=== PATIENT | male | born 1975 | race Caucasian/White ===

== ENCOUNTER 2025-04-01 17:11 | Emergency (ER) | payer MEDICAID, SELFPAY ==
[2025-04-01 17:27] VITALS: BP 172/96; PULSE 95; RESP 20; TEMP 36.4; O2SAT 98
--- NOTE | 2025-04-01 17:35 | PD.EDRME ---
Rapid Medical Screening Exam RME Arrival date/time: 04/01/25 17:11 Chief Complaint: Back Pain/Injury Vital signs: Vital Signs Temperature 97.5 F 04/01/25 17:27 Pulse Rate 95 04/01/25 17:27 Respiratory Rate 20 04/01/25 17:27 Blood Pressure 172/96 H 04/01/25 17:27 Pulse Oximetry (%) 98 04/01/25 17:27 Oxygen Delivery Method Room Air 04/01/25 17:27 Pulse ox 98% room air Vital signs reviewed by provider: No RME Narrative: Patient tells me that at 1500 this afternoon he developed intense pain to the area of the right lower quadrant and radiates down to the scrotal sac.
--- NOTE | 2025-04-01 17:36 | XR_ITS ---
Examination: Testicular 3d alexia incomplete TECHNIQUE: Easley scale sonographic images testes, assessment or treatment for venous outflow, Doppler spectral analysis color flow analysis INDICATIONS: Right groin and back pain beginning 3 hours ago FINDINGS: Right testicle is 4.4 cm epididymis 1.4 cm 5 mm appendix testis Arterial focus: No testicular mass Left testis 3.1 cm epididymis 0.9 cm Arterial flow to the testicle. No testicular mass IMPRESSION: Negative study
--- NOTE | 2025-04-01 17:42 | XR_ITS ---
Examination: CT abdomen and pelvis without contrast. Coronal 3-D reconstructions. Sagittal 2-D reconstructions. Date and time of exam:April 01, 2025 1840 hours INDICATIONS: Right lower abdominal pain radiating to the flank and back beginning one month ago CTDI: vol (mGy): 10.3 DLP: (mGycm): 682 Technique: Axial images of the abdomen have been obtained, 3 mm slice thickness Intravenous contrast material has not been administered. Low dose protocols were performed. One or more of the following dose reduction techniques were used; automated exposure control, adjustment of the mA and/or KV according to patient size, use of iterative reconstruction technique. Findings: No focal liver or splenic lesions No gallstones No pancreatic or adrenal mass. No renal or ureteral calculi, no hydronephrosis Aorta normal size Normal appendix No bowel obstruction Mild diffuse wall thickening involving the colon Normal seminal vesicles Transverse prostate dimension 3.9 cm Bladder is contracted with mild wall thickening Tiny fat containing inguinal hernias L4-L5 3 mm central lumbar disc bulge L5-S1 3 mm and lumbar disc bulge IMPRESSION: No renal or ureteral calculi, no hydronephrosis Normal appendix Mild thickening of the urinary bladder wall, consider cystitis Mild nonspecific colitis pattern
[2025-04-01 18:14] LABS: Basophils # (Auto) 0.1 Thou/mm3 (0.0-0.2); Basophils % (Auto) 0 % (0-2.5); Eosinophils # (Auto) 0.1 Thou/mm3 (0.0-0.5); Eosinophils % (Auto) 1 % (0-10); Hematocrit 46.4 % (41.0-53.0); Immature Granulocytes % (Auto) 0 % (0-0); Immature Granulocytes Auto 0.04 Thou/mm3 (0.00-0.00); Lymphocytes # (Auto) 1.8 Thou/mm3 (1.0-4.8); Lymphocytes % (Auto) 16 % (10-50); Mean Corpuscular HGB Conc 34.5 g/dl (31.0-37.0); Mean Corpuscular Hemoglobin 30.6 pg (25.0-35.0); Mean Corpuscular Volume 89 fL (80-100); Monocytes # (Auto) 0.8 Thou/mm3 (0.0-0.8); Monocytes % (Auto) 7 % (0-12); Neutrophils # (Auto) 8.6 Thou/mm3 (1.8-7.7); Neutrophils % (Auto) 76 % (37-80); Nucleated Red Blood Cell % 0 /100 WBC (0); Platelet Count 224 Thou/mm3 (140-440); RDW Standard Deviation 42.1 fL (35.1-43.9); Red Blood Count 5.23 Miln/mm3 (4.50-5.90); White Blood Count 11.3 Thou/mm3 (3.8-10.6)
[2025-04-01] MEDS: HYDROcodone/APAP 10/325 TAB PO ×2 (18:48→22:08)
[2025-04-01 19:39] LABS: Alanine Aminotransferase 23 U/L (10-49); Albumin, Serum 4.9 gm/dL (3.5-5.0); Alkaline Phosphatase 83 U/L (46-116); Anion Gap 12 (7-16); Aspartate Amino Transferase 26 U/L (0-34); BUN/Creatinine Ratio 9 Ratio (12-20); Bilirubin,Total 0.4 mg/dL (0.3-1.2); Blood Urea Nitrogen 10 mg/dL (9-23); Calcium 10.3 mg/dL (8.3-10.6); Calcium (Corrected) 10.3 mg/dL (8.5-10.1); Carbon Dioxide 26.3 mMol/L (20.0-31.0); Chloride 103 mMol/L (98-107); Creatinine (Component) 1.1 mg/dL (0.6-1.3); Globulin 2.5 gm/dL (2.3-3.5); Glucose 117 mg/dL (74-106); Lipase 61 U/L (12-53); Osmolality,Calculated 281 (275-295); Potassium 3.9 mMol/L (3.4-5.1); Sodium 141 mMol/L (136-145); Total Protein 7.4 gm/dL (5.7-8.2); eGFR > 60 See Note
[2025-04-01 20:18] LABS: Collection Type, Urine Clean Catch
[2025-04-01 20:55] LABS: Amorphous Crystals,Urine Present (Absent); Bacteria,Urine Rare; Bilirubin,Urine Negative (Negative); Blood,Urine Negative (Negative); Clarity,Urine Turbid (Clear/Hazy); Color,Urine Yellow (Lt Yel-Yel); Glucose, Urine Negative (Negative); Ketones,Urine Trace (Negative); Leukocyte Esterase,Urine Positive (Negative); Nitrite,Urine Negative (Negative); Protein,Urine 1+ (Neg - Trace); RBC,Urine 10 /hpf (0-3); Specific Gravity,Urine 1.037 (1.001-1.035); Squamous Epithelial Cell,Urine < 1 /hpf (0-5); WBC,Urine 7 /hpf (0-5)
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
[2025-04-01] MEDS: KETOROLAC INJ 60 MG/2 ML VIAL IM (22:07)
[2025-04-01] MEDS: ACETAMINOPHEN 325 MG TABLET PO (22:08)
[2025-04-01 22:11] VITALS: BP 128/86; PULSE 78
== END 2025-04-01 22:12 | disposition home or self-care (01) ==
PROVIDERS: Physician Assistant; Emergency Provider Emergency Medicine; PCP Family Medicine
DX: S39.012A Strain of muscle, fascia and tendon of lower back, initial encounter (principal); X58.XXXA Exposure to other specified factors, initial encounter; N50.811 Right testicular pain; N50.82 Scrotal pain
CPT/HCPCS: 36415; 74176; 76870; 80053; 81001; 83690; 85025; 96372; 99284; J1885; A9270

== ENCOUNTER → 2025-05-28 | Outpatient (CLI) | payer MEDICAID, SELFPAY ==
--- NOTE | 2025-05-28 07:30 | XR_ITS ---
Examination: MRI lumbar spine without contrast Date and time of exam: May 28, 2025 0721 hours INDICATIONS: Lower back pain radiating to the right groin beginning 2 months ago Technique: Multiple MRI axial and sagittal sections lumbar spine. Sagittal T2-weighted images, TR 3500, TE 118 T1 weighted transverse sections, TR 688 T8.5, T2-weighted sagittal sections T1 weighted sagittal sections TR 621, TE 30 T2 axial sections, TR 4, 190, TE 84. Findings: Satisfactory alignment lumbar vertebral bodies Mild to moderate diffuse lumbar disc narrowing Disc desiccation lower 3 lumbar levels No lumbar fracture No spondylolisthesis L5-S1 4 mm central lumbar disc bulge contiguous with the right S1 nerve root L4-L5 4 mm left paracentral disc bulge L3-L4 2 mm central lumbar disc bulge L2-L3 no disc protrusion L1-L2 2 mm right subarticular disc bulge IMPRESSION: L5-S1 4 mm central lumbar disc bulge contiguous with the right S1 nerve root L4-L5 4 mm left paracentral disc bulge
== END | disposition home or self-care (01) ==
LOC: SMRI 07:11
PROVIDERS: PCP Physician Assistant; Referring Provider Physician Assistant; Visit Provider Physician Assistant
DX: M51.360 Other intervertebral disc degeneration, lumbar region with discogenic back pain only (principal); M51.370 Other intervertebral disc degeneration, lumbosacral region with discogenic back pain only
CPT/HCPCS: 72148